=== PATIENT | male | born 1950 | race Caucasian/White ===

== ENCOUNTER 2017-08-23 11:39 | Emergency (ER) ==
[2017-08-23 11:44] VITALS: BP 172/99; TEMP 99.4; BMI 31.8
--- NOTE | 2017-08-23 12:10 | ED.PDOC ---
General ED Provider: Dr. STEPHANIE JOHNSON Chief Complaint: Foot Pain/Injury Stated Complaint: Right foot and ankle pain; no injury Time Seen by Physician: 12:00 Mode of Arrival: Wheelchair Information Source: Patient Exam Limitations: No limitations Nursing and Triage Documentation Reviewed and Agree: Yes Does patient meet sepsis criteria?: No System Inflammatory Response Syndrome: Not Applicable Sepsis Protocol: For patient's 13 years and over: Temp is 96.8 and below OR 101 and greater Pulse >90 BPM Resp >20/minute Acutely Altered Mental Status Are patient's symptoms suggestive of a new infection, such as: -Pneumonia -Skin, Soft Tissue -Endocarditis -UTI -Bone, Joint Infection -Implantable Device -Acute Abdominal Infection -Wound Infection -Meningitis -Blood Stream Catheter Infection -Unknown Musculoskeletal Complaint Exam - Ankle/Foot Complaint/Exam Location of Injury: Reports: Right Mechanism of Injury: Reports: No known trauma Onset/Duration: After riding bike on Monday Symptoms Are: Reports: Still present Onset of Pain: Reports: Minutes (Gradual development) Initial Severity: Moderate Current Severity: Moderate Location: Reports: Discrete (foot and ankle) Character: Reports: Aching Alleviating: Reports: Rest Aggravating: Reports: Movement, Weight bearing Able to Bear Weight: Yes (uncomfortable) Associated Signs and Symptoms: Reports: Swelling Related History: Reports: Similar episode (Last winter; resolved without intervention) Gout Risk Factors: Reports: >40 years old, Male Achilles Tendon Abnormality: No Differential Diagnosis: Cellulitis, Closed Fracture, Gout, Sprain, Strain Review of Systems - Review Of Systems Constitutional: Reports: No symptoms Musculoskeletal: Reports: Joint pain (R ankle), Joint swelling (R ankle and foot ) All Other Systems: Reviewed and Negative Past Medical History - Past Medical History Previously Healthy: Yes Endocrine: Reports: None Cardiovascular: Reports: Hypertension Respiratory: Reports: None Hematological: Reports: None Gastrointestinal: Reports: None Genitourinary: Reports: None Neuro/Psych: Reports: None Musculoskeletal: Reports: None Cancer: Reports: None - Surgical History General Surgical History: Reports: None - Family History Family History: Reports: None - Social History Smoking Status: Current every day smoker, Light tobacco smoker Hx Substance Use: No Alcohol Screening: Heavy Lives: With family Physical Exam - Physical Exam Appearance: Well-appearing Pain Distress: Mild Respiratory: Airway patent, Respirations nonlabored Skin: Warm, Dry, Normal color Neurological: Sensation intact, Motor intact, Alert, Oriented Psychiatric: Affect appropriate, Mood appropriate Interpretation - Radiology Interpretation Radiology Interpretation By: Radiologist Radiology Results: No acute changes (R ankle) Radiology Interpretation By: Radiologist Radiology Results: No acute changes (R foot) Critical Care Note - Critical Care Note Total Time (mins): 15 (Eval X rays and labs) Course - Course Hematology/Chemistry: 08/23/17 12:25 08/23/17 12:25 Orders, Labs, Meds: Lab Review 08/23/17 08/23/17 12:25 12:25 WBC 9.14 RBC 5.15 Hgb 15.5 Hct 44.3 MCV 86.0 MCH 30.1 MCHC 35.0 RDW Coeff of [place] 13.2 Plt Count 155 Immature Gran % (Auto) 0.4 Neut % (Auto) 84.4 Lymph % (Auto) 8.0 L [place] % (Auto) 6.6 Eos % (Auto) 0.4 Baso % (Auto) 0.2 Immature Gran # (Auto) 0.0 Neut # (Auto) 7.7 H Lymph # (Auto) 0.7 Floyd # (Auto) 0.6 Eos # (Auto) 0.0 Baso # (Auto) 0.0 Sodium 132 L Potassium 3.7 Chloride 97 L Carbon Dioxide 24 Anion Gap 14.7 BUN 13 Creatinine 0.94 Estimated GFR (MDRD) 80.00 BUN/Creatinine Ratio 13.82 Glucose 111 Uric Acid 8.7 H Calcium 9.5 Total Bilirubin 1.4 H AST 21 ALT 26 Alkaline Phosphatase 85 Total Protein 7.5 Albumin 3.6 Globulin 3.9 Albumin/Globulin Ratio 0.92 Orders Category Date Time Status CBC W/ AUTO DIFF Stat LAB 08/23/17 12:25 Completed COMPREHENSIVE METABOLIC PANEL Stat LAB 08/23/17 12:25 Completed URIC ACID Stat LAB 08/23/17 12:25 Completed ANKLE, RIGHT MIN 3 VIEWS Stat RADS 08/23/17 12:07 Completed FOOT, RIGHT 3 VIEWS Stat RADS 08/23/17 12:07 Completed Vital Signs: Temp Pulse Resp BP Pulse Ox 08/23/17 11:39 99.4 F 114 H 18 172/99 H 94 L Departure - Departure Time of Disposition: 13:00 Disposition: HOME SELF-CARE Discharge Problem: Gout attack Qualifiers: Gout site: foot Gout etiology: idiopathic Laterality: right Qualified Code(s): M10.071 - Idiopathic gout, right ankle and foot Instructions: Gout (ED) Condition: Good Pt referred to PMD for follow-up: Yes (Call for appointment) IPMP verified?: No (Narcotic not prescribed) Prescriptions: Indomethacin [Indocin] 25 mg PO TIDWM #30 capsule Allergies/Adverse Reactions: Allergies No Known Allergies Allergy (Verified 08/23/17 11:44) Home Medications: Ambulatory Orders Enalapril Maleate [Vasotec] mg PO BID 08/23/17 Hydrochlorothiazide mg PO DAILY 08/23/17 Indomethacin [Indocin] 25 mg PO TIDWM #30 capsule 08/23/17 Metoprolol Succinate mg PO DAILY 08/23/17
--- NOTE | 2017-08-23 12:29 | DI ---
EXAM: Three views of the right ankle. History: Right ankle pain. Findings: No acute fracture or dislocation. Diffuse soft tissue swelling and an ankle joint effusio n. Joint spaces are relatively preserved. Impression: 1. No acute osseous abnormality. 2. Diffuse soft tissue swelling and tibiotalar joint effusion
--- NOTE | 2017-08-23 12:29 | DI ---
EXAM: Three views of the right foot. History: Right foot pain. Findings: No acute fracture or dislocation. Joint spaces are relatively preserved. Diffuse soft ti ssue swelling and tibiotalar joint effusion. Impression: 1. No acute osseous abnormality. 2. Diffuse soft tissue swelling and tibiotalar joint effusion.
== END 2017-08-23 13:17 | disposition home or self-care (01) ==
LOC: ED 11:39
DX: M10.071 Idiopathic gout, right ankle and foot (principal); I10 Essential (primary) hypertension; F17.210 Nicotine dependence, cigarettes, uncomplicated
CPT/HCPCS: 36415; 80053; 84550; 85025; 99283

== ENCOUNTER 2018-08-28 06:40 | Day surgery (SDC) ==
[2018-08-28 07:12] VITALS: TEMP 98.8
[2018-08-28] MEDS ORDERED: LIDOCAINE 1% 20 ML MDV ID STA (07:12)
[2018-08-28] MEDS ORDERED: LIDOCAINE 1% 20 ML MDV ID ONE (07:35)
[2018-08-28] MEDS ORDERED: DIPRIVAN 20 ML VIAL IVP ONE (08:35)
[2018-08-28 09:32] VITALS: BP 103/69
--- NOTE | 2018-08-29 10:38 | OP ---
INDICATIONS FOR PROCEDURE: 68 year old gentleman presents for a screening colonoscopy exam. He last had a colonoscopy over 12 hours ago. MEDICATIONS: SEE ANESTHESIA NOTES. PROCEDURE: COLONOSCOPY. SNARE POLYPECTOMY. REPORT: The risks, benefits, alternatives and limitations were discussed in detail with the patient. Informed consent was obtained. After adequate sedation was achieved, a digital rectal exam revealed good tone, no masses. The colonoscope was introduced into the rectum and advanced under direct visual guidance to the cecum. The cecum was identified by the appendiceal orifice and IC valve. He does a long redundant colon to reach the cecum requires external pressure. I slowly withdrew the scope in circumferential manner examining the mucosa quite carefully. I looked on the proximal and distal sides of folds and flexures as best as possible. I was able to retroflex the scope in the right colon as well as the left colon to increase visualization. In the ascending colon there was two polyps about 6mm in size and sessile. I removed both of these by snare technique. They were placed in the same pathology jar. In the proximal midtransverse colon there was a semi- sessile 9mm polyp that I removed by snare technique. In the distal sigmoid area there was a semi-sessile 6 or 7 mm polyp removed by snare technique. In the distal rectum noted on retroflex view there was two polyps 3mm and 5mm in size and sessile both removed by snare technique. The smaller one was completely destroyed. I noted in the sigmoid colon diverticulosis. No other abnormalities were noted including on forward and retroflex views including the anal canal. The prep was adequate. Withdraw time was 21 minutes and 36 seconds. The patient tolerated the procedure well with stable vital signs and pulse oximetry throughout. IMPRESSION: 1. 6 Colonic polyps removed 2. Scatter diverticulosis in the sigmoid RECOMMENDATIONS: 1. High fiber diet 2. Office visit as needed 3. Await polyp pathology results and if everything is benign I recommend repeat colonoscopy examination in 3 years or sooner if there are signs or symptoms to indicate otherwise. CC: Dr. Casey JACKSON
== END 2018-08-28 10:00 | disposition home or self-care (01) ==
LOC: SURG 06:40
PROVIDERS: ATTEND Internal Medicine Gastroenterology
DX: Z12.11 Encounter for screening for malignant neoplasm of colon (principal); D12.2 Benign neoplasm of ascending colon; D12.4 Benign neoplasm of descending colon; D12.3 Benign neoplasm of transverse colon; D12.8 Benign neoplasm of rectum